=== PATIENT | male | born 1970 | race Caucasian/White ===

== ENCOUNTER 2016-08-03 10:25 | Outpatient (CLI) | payer MEDICARE, MEDICAID | END 2016-08-03 10:30 | LOC: POD 10:25 | PROVIDERS: ATTEND Podiatrist Public Medicine | DX: B35.1 Tinea unguium (principal); L60.0 Ingrowing nail; M79.674 Pain in right toe(s); M79.675 Pain in left toe(s) | CPT/HCPCS: 11721; G0463 ==

== ENCOUNTER 2016-09-06 07:56 | Outpatient (CLI) | payer MEDICARE ==
[2016-09-06 08:50] LABS: eGFR (African) > 60; eGFR (Non-African) > 60
== END 2016-09-06 07:57 ==
LOC: LAB 07:56
PROVIDERS: ATTEND Family Medicine
DX: E03.9 Hypothyroidism, unspecified (principal); I10 Essential (primary) hypertension
CPT/HCPCS: 36415; 80053; 80061; 84443

== ENCOUNTER 2016-11-30 09:46 | Outpatient (CLI) | payer MEDICARE | END 2016-11-30 09:50 | LOC: POD 09:46 | PROVIDERS: ATTEND Podiatrist Public Medicine | DX: B35.1 Tinea unguium (principal); L60.0 Ingrowing nail; M79.674 Pain in right toe(s); M79.675 Pain in left toe(s) | CPT/HCPCS: 11721; G0463 ==

== ENCOUNTER 2017-01-19 09:21 | Outpatient (CLI) | payer MEDICARE, OTHER ==
[2017-01-19 10:00] LABS: eGFR (African) > 60; eGFR (Non-African) > 60
== END 2017-01-19 09:22 ==
LOC: LAB 09:21
PROVIDERS: ATTEND Family Medicine
DX: E03.9 Hypothyroidism, unspecified (principal)
CPT/HCPCS: 36415; 80053; 80061; 84443

== ENCOUNTER 2017-03-01 09:54 | Outpatient (CLI) | payer MEDICARE, OTHER | END 2017-03-01 09:55 | LOC: POD 09:54 | PROVIDERS: ATTEND Podiatrist Public Medicine | DX: L60.0 Ingrowing nail (principal); B35.1 Tinea unguium; M79.674 Pain in right toe(s); M79.675 Pain in left toe(s) | CPT/HCPCS: 11721; G0463 ==

== ENCOUNTER 2017-05-31 10:23 | Outpatient (CLI) | payer MEDICARE, OTHER | END 2017-05-31 10:24 | LOC: POD 10:23 | PROVIDERS: ATTEND Podiatrist Public Medicine | DX: M79.674 Pain in right toe(s) (principal); M79.675 Pain in left toe(s); B35.1 Tinea unguium; L60.0 Ingrowing nail | CPT/HCPCS: 11721; G0463 ==

== ENCOUNTER 2017-09-06 09:40 | Outpatient (CLI) | payer MEDICARE | END 2017-09-06 09:42 | LOC: POD 09:40 | PROVIDERS: ATTEND Podiatrist Public Medicine | DX: M79.674 Pain in right toe(s) (principal); M79.675 Pain in left toe(s); B35.1 Tinea unguium; L60.0 Ingrowing nail | CPT/HCPCS: 11721; G0463 ==

== ENCOUNTER 2017-12-06 10:15 | Outpatient (CLI) | payer MEDICARE, OTHER | END 2017-12-06 10:16 | LOC: POD 10:15 | PROVIDERS: ATTEND Podiatrist Public Medicine | DX: M79.674 Pain in right toe(s) (principal); M79.675 Pain in left toe(s); B35.1 Tinea unguium; L60.0 Ingrowing nail | CPT/HCPCS: 11721; G0463 ==